=== PATIENT | female | born 1960 | race American Indian/Alaskan Native ===

== ENCOUNTER 2017-11-15 21:44 | Emergency (ER) | payer MEDICAID, OTHER ==
[2017-11-15 21:48] VITALS: BMI 41.0
--- NOTE | 2017-11-15 21:56 | ED PDOC ---
Arrival/HPI - General Chief Complaint: Seizure Time Seen by Provider: 11/15/17 21:49 Historian: Spouse EM Caveat: Acuity of Condition - History of Present Illness Narrative History of Present Illness (Text): 11/15/17 21:55 57 year old female, whose past medical history includes seizures (On keppra) and hypertension, presents to the emergency department actively seizing. As per , patient was having abdominal pain today, but was unsure about the specific details. He reports that the abdominal pain became worse before patient had a seizure. HPI and ROS limited due to patient's acuity of condition. PMD: Dr. Hui Varma Symptom Onset: Sudden Symptom Course: Unchanged Activities at Onset: Light Context: Home Past Medical History - Provider Review Nursing Documentation Reviewed: Yes - Cardiac Hx Hypertension: Yes - Pulmonary Hx Respiratory Disorders: No - Neurological Hx Seizures: Yes - HEENT Hx HEENT Disorder: No - Renal Hx Renal Disorder: No - Endocrine/Metabolic Hx Endocrine Disorders: No - Hematological/Oncological Hx Blood Disorders: No - Integumentary Hx Dermatological Disorder: No - Musculoskeletal/Rheumatological Hx Falls: No - Gastrointestinal Hx Gastrointestinal Disorders: Yes Other/Comment: cyst in esophagus. - Genitourinary/Gynecological Hx Genitourinary Disorders: No - Psychiatric Hx Psychophysiologic Disorder: No Hx Substance Use: No - Surgical History Hx Cholecystectomy: Yes Family/Social History - Physician Review Nursing Documentation Reviewed: Yes Family/Social History: No Known Family HX Smoking Status: Never Smoked Hx Alcohol Use: No Hx Substance Use: No Allergies/Home Meds Allergies/Adverse Reactions: Allergies Penicillins Allergy (Verified 04/19/17 17:55) RASH Home Medications: Home Meds Medication Instructions Recorded Confirmed Amlodipine Besylate 10 mg PO DAILY 04/20/17 11/15/17 Gabapentin 300 mg PO HS 04/20/17 11/15/17 Vit D3/Vit E AC/Safflower Oil 1 tab PO SAT 04/20/17 11/15/17 levETIRAcetam [Keppra] 500 mg PO DAILY 04/20/17 11/15/17 Review of Systems - Physician Review All systems were reviewed & negative as marked: Yes - Review of Systems Systems not reviewed;Unavailable: Acuity of Condition Gastrointestinal: Abdominal Pain Neurological: Seizure Physical Exam Vital Signs Reviewed: Yes Vital Signs Temp Pulse Resp BP Pulse Ox 11/15/17 22:26 98.2 F 64 18 151/86 H 97 Appearance: Positive for: Non-Toxic Pain Distress: None Mental Status: Positive for: other (Not responding to deep painful stimuli) - Systems Exam Head: Present: Atraumatic, Normocephalic Pupils: Present: PERRL Extroacular Muscles: Present: EOMI Conjunctiva: Present: Normal Mouth: Present: Moist Mucous Membranes Neck: Present: Normal Range of Motion Respiratory/Chest: Present: Clear to Auscultation, Good Air Exchange. No: Respiratory Distress, Accessory Muscle Use Cardiovascular: Present: Regular Rate and Rhythm, Normal S1, S2. No: Murmurs Abdomen: No: Tenderness, Distention, Peritoneal Signs Back: Present: Normal Inspection Upper Extremity: Present: Normal Inspection. No: Cyanosis, Edema Lower Extremity: Present: Normal Inspection. No: Edema Neurological: Present: GCS=15, CN II-XII Intact Skin: Present: Warm, Dry, Normal Color. No: Rashes Psychiatric: Present: Other (No responding to deep painful stimuli) Medical Decision Making ED Course and Treatment: 11/15/17 21:55 Impression: 57 year old female presents actively seizing. Patient was complaining of abdominal pain today. Plan: -- Labs -- CT Head w/o Contrast -- EKG -- Chest X-ray -- Ativan 4mg -- Abdomen Complete US -- Reassess and disposition Progress Notes: 11/15/17 22:40 EKG shows NSR at 64 BPM with LAD. Interpreted by me. CXR Impression: As read by me, NAD . EXAM: US Abdomen Complete Dictated and Authenticated by: Ramirez Cavanaugh MD 11/15/2017 11:18 PM IMPRESSION: 1. The liver is increased in echogenicity, most commonly due to fatty infiltration, but other chronic liver diseases may have a similar appearance. Hepatomegaly. 2. The common bile duct measures 0.6 cm in diameter, which is within the normal range. 3. The gallbladder is absent. 4. Additional findings described above. EXAM: CT Head Without Intravenous Contrast Dictated and Authenticated by: Ramirez Cavanaugh MD 11/15/2017 11:04 PM IMPRESSION: 1. No acute intracranial abnormality. 2. Incidental/non-acute findings are described above. 11/15/17 23:54 On re-evaluation, patient feels better and is in no acute distress. I have discussed the results and plan with the patient, who expresses understanding. Patient in agreement with plan to be discharged home. Patient is stable for discharge. Patient was instructed to follow up with physician or return if symptoms worsen or new concerning symptoms arise. - Lab Interpretations Lab Results: 11/15/17 22:04 11/15/17 22:04 Lab Results 11/15/17 22:04: Sodium 144, Potassium 3.7, Chloride 105, Carbon Dioxide 25, Anion Gap 18, BUN 14, Creatinine 0.7, Est GFR ( Amer) > 60, Est GFR (Non- Af Amer) > 60, Random Glucose 116 H, Calcium 9.7, Total Bilirubin 0.6, AST 29, ALT 27, Alkaline Phosphatase 86, Lactate Dehydrogenase 561, Total Creatine Kinase 74, Troponin I < 0.01, Total Protein 8.3, Albumin 4.6, Globulin 3.7, Albumin/Globulin Ratio 1.2, Lipase 46 11/15/17 22:04: PT 12.4, INR 1.09 H 11/15/17 22:04: WBC 10.9 D, RBC 5.96, Hgb 13.8, Hct 41.9, MCV 70.3 L, MCH 23.2 L, MCHC 32.9, RDW 14.0, Plt Count 247, MPV 10.6, Gran % 63.6, Lymph % (Auto) 30.9, [place] % (Auto) 4.1, Eos % (Auto) 1.1 L, Baso % (Auto) 0.3, Gran # 6.91 H, Lymph # (Auto) 3.4, [place] # (Auto) 0.4, Eos # (Auto) 0.1, Baso # (Auto) 0.03 I have reviewed the lab results: Yes - RAD Interpretation Radiology Orders: 11/15/17 21:54 HEAD W/O CONTRAST [CT] Stat ABDOMEN COMPLETE [US] Stat 11/15/17 21:57 CHEST PORTABLE [RAD] Stat - EKG Interpretation Interpreted by ED Physician: Yes Type: 12 lead EKG - Medication Orders Current Medication Orders: Discontinued Medications Lorazepam (Ativan) 4 mg IVP ONCE ONE PRN Reason: Protocol Stop: 11/15/17 21:49 Last Admin: 11/15/17 22:00 Dose: 4 mg IVP Administration Document 11/15/17 22:00 RADHA (Rec: 11/15/17 22:00 RADHA [id number]) Charges for Administration # of IVP Administrations 1 - Scribe Statement The provider has reviewed the documentation as recorded by the Fabby Roldan Provider Scribe Attestation: All medical record entries made by the Scribe were at my direction and personally dictated by me. I have reviewed the chart and agree that the record accurately reflects my personal performance of the history, physical exam, medical decision making, and the department course for this patient. I have also personally directed, reviewed, and agree with the discharge instructions and disposition. Disposition/Present on Arrival - Present on Arrival Any Indicators Present on Arrival: No History of DVT/PE: No History of Uncontrolled Diabetes: No Urinary Catheter: No History of Decub. Ulcer: No History Surgical Site Infection Following: None - Disposition Have Diagnosis and Disposition been Completed?: Yes Diagnosis: Seizure, Abdominal pain Disposition: HOME/ ROUTINE Disposition Time: 23:45 Patient Plan: Discharge Patient Problems: Current Active Problems Problem Status Onset Abdominal pain Acute Seizure Acute Condition: GOOD Discharge Instructions (ExitCare): Seizures, Adult (DC), Acute Abdomen (Belly Pain), Adult (DC) Additional Instructions: Mrs Marily Bruno you are going through this right now. Return to us if worse or new sympoms occur. Take all your medicines as prescribed. Stephen- Dr. Zay Erickson Referrals: PCP,NO [Non-Staff] - Follow up with primary Forms: [facility] (Armenian), WORK NOTE
[2017-11-15 22:24] LABS: ALB/GLOB RATIO 1.2 (1.1-1.8); ALBUMIN 4.6 g/dL (3.0-4.8); ALT/SGPT 27 U/L (7-56); AST/SGOT 29 U/L (14-36); BLOOD UREA NITROGEN 14 mg/dL (7-21); CALCIUM 9.7 mg/dL (8.4-10.5); GFR AFRICAN-AMERICAN > 60; GFR NON-AFRICAN AMERICAN > 60; LIPASE 46 U/L (23-300)
[2017-11-15 22:27] VITALS: RESP 18; TEMP 98.2
[2017-11-15 22:36] LABS: TROPONIN I < 0.01 ng/mL
[2017-11-15 22:43] LABS: BASO # 0.03 K/mm3 (0.0-2.0); BASO % 0.3 % (0.0-3.0); EOS # 0.1 (0.0-0.7); EOS % 1.1 % (1.5-5.0); GRAN # 6.91 (1.4-6.5); GRAN % 63.6 % (50.0-68.0); HEMOGLOBIN 13.8 g/dL (12.0-16.0); LYMPH # 3.4 (1.2-3.4); LYMPH % 30.9 % (22.0-35.0); MEAN CELL VOLUME 70.3 fl (80.0-105.0); MEAN CORPUSCULAR HEMOGLOBIN 23.2 pg (25.0-35.0); MEAN CORPUSCULAR HGB CONC 32.9 g/dl (31.0-37.0); MEAN PLATELET VOLUME 10.6 fl (7.0-11.0); MONO # 0.4 (0.1-0.6); MONO % 4.1 % (1.0-6.0); RBC 5.96 10^6/uL (3.5-6.1); WHITE BLOOD COUNT 10.9 10^3/ul (4.5-11.0)
[2017-11-15 22:52] LABS: INR 1.09 (0.93-1.08); PROTHROMBIN TIME 12.4 SECONDS (9.4-12.5)
--- NOTE | 2017-11-15 23:04 | CT ---
EXAM: CT Head Without Intravenous Contrast EXAM DATE/TIME: 11/15/2017 9:54 PM CLINICAL HISTORY: The patient age is 57 years old and is female; Signs and symptoms; Other: Seizure; Additional info: Seizure, history of same Facility exam id and description: Ct heads head w/o contrast TECHNIQUE: Axial computed tomography images of the head/brain without intravenous contrast. All CT scans at this facility use one or more dose reduction techniques, viz.: automated exposure control; ma/kV adjustment per patient size (including targeted exams where dose is matched to indication; i.e. head); or iterative reconstruction technique. Coronal and sagittal reformatted images were created and reviewed. COMPARISON: CT - HEAD W/O CONTRAST 2017-04-19 20:48 FINDINGS: Brain: The white-freitas differentiation is preserved demonstrating no acute territorial type infarct. No acute intracranial hemorrhage is seen. No significant white matter disease visualized. Midline shift: There is no midline shift. Ventricles: No ventriculomegaly. Bones/joints: The calvarium demonstrates no evidence for a depressed fracture. Soft tissues: No acute abnormality. Sinuses: There is a small hyperdense osteoma within the left frontal sinus. A tiny mucus retention cyst or polyp is visualized within the right frontal sinus. Mastoid air cells: No mastoid effusion. IMPRESSION: 1. No acute intracranial abnormality. 2. Incidental/non-acute findings are described above.
--- NOTE | 2017-11-15 23:18 | US ---
EXAM: US Abdomen Complete EXAM DATE/TIME: 11/15/2017 9:54 PM CLINICAL HISTORY: The patient age is 57 years old and is female; Pain; Abdominal pain; Generalized; Additional info: Biliary colic Facility exam id and description: Us abd abdomen complete TECHNIQUE: Real-time ultrasound of the abdomen (complete) with image documentation. COMPARISON: CT - ABD PELVIS PO CONTRAST ONLY 2015-08-19 11:39 FINDINGS: Liver: The liver is increased in echogenicity, most commonly due to fatty infiltration, but other chronic liver diseases may have a similar appearance. The liver measures 21.3 cm in length, consistent with hepatomegaly. Gallbladder: The gallbladder is absent. Common bile duct: The common bile duct measures 0.6 cm in diameter, which is within the normal range. Pancreas: The pancreas is incompletely visualized due to bowel gas. Kidneys: The right kidney measures 11.4 x 4.3 x 4.6 cm. The left kidney measures 10.0 x 5.4 x 4.5 cm. No shadowing stones. No hydronephrosis. Spleen: The spleen measures 10.2 x 6.6 x 4.0 cm. Evaluation of the spleen is limited by artifact. Aorta: The visualized segments of the aorta are normal in caliber. Inferior vena cava: The inferior vena cava is visualized, but the evaluation is limited. IMPRESSION: 1. The liver is increased in echogenicity, most commonly due to fatty infiltration, but other chronic liver diseases may have a similar appearance. Hepatomegaly. 2. The common bile duct measures 0.6 cm in diameter, which is within the normal range. 3. The gallbladder is absent. 4. Additional findings described above.
[2017-11-16 02:08] VITALS: BP 152/76; PULSE 75; O2SAT 99
--- NOTE | 2017-11-16 08:31 | RAD ---
HISTORY: Seizure. COMPARISON: 04/19/2017. FINDINGS: LUNGS: No active pulmonary disease. PLEURA: No significant pleural effusion identified, no pneumothorax apparent. CARDIOVASCULAR: No radiographic findings to suggest acute or significant cardiovascular disease. OSSEOUS STRUCTURES: No significant abnormalities. VISUALIZED UPPER ABDOMEN: Normal. OTHER FINDINGS: None. IMPRESSION: No active disease. No significant interval change compared to the prior examination(s).
--- NOTE | 2017-11-16 19:03 | CARD ---
APPROVED REPORT EKG Measurement Heart [id number] <Conclusion> Normal sinus rhythm Left axis deviation Moderate voltage criteria for LVH, may be normal variant Abnormal ECG
== END 2017-11-15 23:55 | disposition home or self-care (01) ==
LOC: ED 21:44
DX: R56.9 Unspecified convulsions (principal); R10.9 Unspecified abdominal pain; I10 Essential (primary) hypertension
CPT/HCPCS: 70450; 71045; 76700; 80053; 82550; 83615; 83690; 84484; 85025; 85610; 93005; 96374; 99284; J2060